=== PATIENT | male | born 1935 | race Caucasian/White ===

== ENCOUNTER 2023-01-21 09:02 | Emergency (ER) | payer MEDICARE, OTHER, SELFPAY ==
[2023-01-21 09:03] VITALS: BP 139/78; PULSE 82; RESP 16; TEMP 36.3; O2SAT 100; BMI 25.0
--- NOTE | 2023-01-21 09:34 | ED.VIS.LOWEX ---
HPI History of Present Illness Chief Complaint: Lower Extremity Injury Informant: patient and spouse/S.O. Narrative Narrative: Brought by EMS worsening nontraumatic right knee pain. History of osteoarthritis bilateral knees followed by Dr. Mosquera. He had a previous left total hip arthroplasty 4 years ago while in [place] this was elective. States however since yesterday pain increased worse with movement. No fevers. No history of diabetes. He took naproxen with no relief. He has been on oxycodone for his hip replacement. Denies history of gout. He had a steroid injection to the right knee 2 months ago that helped with symptoms. PFSH PFSH Home Medications cephalexin 500 mg capsule 500 mg PO Q6 #20 CAPSULES 01/21/23 [Rx Last Taken Unknown] doxycycline monohydrate 100 mg capsule 100 mg PO BID #10 CAPSULES 01/21/23 [Rx Last Taken Unknown] oxycodone-acetaminophen 5 mg-325 mg tablet (Percocet) 1 tab PO Q6H pain 3 days #12 tabs 01/21/23 [Rx Last Taken Unknown] simvastatin 40 mg tablet mg 01/21/23 [History Last Taken 01/20/23] Allergy/AdvReac Type Severity Reaction Status Date / Time No Known Allergies Allergy Verified 01/21/23 09:08 Social History Smoking Status: Current some day smoker tobacco type: pipe ROS ROS ED Constitutional Constitutional ED: Denies chills, fever(s) or sweats Eyes Eyes: Denies change in vision ENT ENT ED: Denies dysphagia or sore throat Cardiovascular Cardiovascular: Denies chest pain, leg edema, palpitations or racing heartbeat Respiratory/Chest Respiratory/Chest: Denies cough, dyspnea or dyspnea on exertion Gastrointestinal Gastrointestinal: Denies abdominal pain, diarrhea, nausea or vomiting Genitourinary Genitourinary ED: Denies dysuria, hematuria or urinary frequency Musculoskeletal Musculoskeletal: Reports arthralgias; Denies back pain, extremity pain or neck pain Integumentary Denies rash or wounds Neurologic Neurologic: Denies headache(s), paresthesias or weakness EXAM Physical Exam Const Vital Signs: 01/21/23 09:03 Temperature 97.4 F L Temperature Source Temporal Pulse Rate 82 Respiratory Rate 16 Blood Pressure 139/78 H Blood Pressure Mean 98 Pulse Ox 100 Oxygen Delivery Method Room Air Positive well nourished and well developed General Appearance ED: well developed and NAD HEENT Reports moist mucous membranes normocephalic and atraumatic Eyes PERRL, EOMs intact bilaterally and conjunctivae normal General Eye ED: Yes normal appearance of both eyes Neck no lymphadenopathy and supple General: Negative for tenderness Chest Wall Chest: Negative for tenderness Resp normal respiratory effort and normal air movement Effort and Inspection: symmetric chest movement; Negative for respiratory distress Cardio regular rate, regular rhythm and no murmurs Peripheral Pulses: pulses 2+ throughout GI normal to inspection, nondistended, normoactive bowel sounds and non-tender Palpation: Negative for guarding or rebound tenderness present Back/Spine no CVA tenderness and no thoracic nor lumbar tenderness Extremity Extremity Narrative: Bilateral knees osteoarthritic changes bilateral knees. Right knee: There is mild redness outer upper aspect of the knee. There is pain with range of motion. There was mild warmth compared to the left. Knee extensor was intact. General Extremety ED: Negative for edema or tenderness General Extremity: Negative for edema Neuro oriented x3 and no sensory deficits noted Sensorium / Orientation: awake and alert Skin no rashes or lesions noted and no wounds MDM MDM MDM Narrative Medical decision making narrative: Interventions / MDM: Differential diagnosis: Arthritis, cellulitis, bursitis Diagnosis considered but do not suspect: Septic joint, however knee aspiration without any fluid My EKG interpretation: N/A Imaging independently reviewed and interpreted by myself: Right knee x-ray 2 views: Mild arthritic changes suprapatellar effusion noted. External documents reviewed: N/A Test considered but not ordered:N/A ED course: Patient had warmth to the knee nontraumatic pain. Discussed with patient potential concerns for septic knee gouty arthritis also in differential. Discussed aspiration of the knee further evaluation. Labs were obtained including uric acid. 0935: Dry aspiration of the joint, lower concerns for infected knee. Analgesia was injected into the knee, no steroids due to having steroid injection 2 months ago by his orthopedist. Labs are pending. 0930: Joint aspiration. Verbal consent from the patient. Risk and benefits. He is not on any anticoagulation medicines. Knee was placed in a flexed position the right side. Initial skin alcohol prep with marking of site. Betadine prep of the skin. Sterile gloves and technique was used. 10 cc syringe 18-gauge needle entrance of the skin medial aspect of the knee, needle 1/2 inch fully flushed into the joint, aspirated there was no fluid return. This was redirected more into the middle aspect of the joint again with no fluid collection. 4 cc of 0.5% bupivacaine was injected for analgesia control. Needle was removed. Minimal bleeding. Bandage placed over the wound. Patient tolerated procedure well. 1020: Laboratory studies returning white count 2, see your 37 uric acid normal. ESR 7. Creatinine 1.43. There is no old for comparison. X-ray of the knee notes a suprapatellar effusion. No joint effusion. Reevaluation patient as needed, redness upper outer knee, pain is right underneath this region with range of motion. The bupivacaine injection did not improve helped this region. There is no direct internal knee pain. Due to the leukocytosis and elevated CRP, paged to discuss with orthopedist for recommendations before antibiotics to be started. I did add lactic acid and blood cultures. 1100: I did speak with his orthopedist Dr. Mosquera, I discussed his history dry aspiration concerning for extra arterial supra patellar effusion. No further intervention required. Agrees with antibiotics which can be started. Reports if admission is required would need the on-call discussion for consult. I evaluated discussed with the patient. He does feel he can walk at this point. Asif wrap was placed in the knee walker use he is able to walk without difficulties. Per spouse he has a cane and a walker at home. He is on stool softeners daily. Therefore he started on Keflex and doxycycline. Avoided Bactrim due to slight renal insufficiency creatinine 1.43. He will follow-up with PCP for recheck. Prescription for oxycodone. Return precaution discussed with patient and spouse. All questions were answered. Re-evaluation: stable Disposition discussed with patient/family/significant other: Patient and significant other Case discussed with consulting clinician: Orthopedist, Dr. Mosquera This note was generated with [employer]ation software. It may contain incorrect words, spelling, and punctuation that were not noted in checking the note before signing. Lab Data Attestation: I reviewed the patient's lab results. Labs: Laboratory Results - last 24 hr 01/21/23 09:30 WBC 14.2 H RBC 3.86 L Hgb 11.9 L Hct 36.6 L MCV 94.8 H MCH 30.8 MCHC 32.5 RDW Std Deviation 51.4 H RDW Coeff of Mauri 15.0 H Plt Count 256 MPV 10.8 Immature Gran % (Auto) 0.800 Neut % (Auto) 87.4 H Lymph % (Auto) 4.7 L [place] % (Auto) 6.5 Eos % (Auto) 0.1 Baso % (Auto) 0.5 Absolute Neuts (auto) 12.5 H Absolute Lymphs (auto) 0.67 L Nucleated RBC % 0 ESR 7 PT 12.7 INR 1.0 APTT 31.5 Sodium 137 Potassium 4.1 Chloride 106 Carbon Dioxide 24.0 Anion Gap 7 BUN 25 H Creatinine 1.43 H Estim Creat Clear Calc 38.29 Est GFR (MDRD) Af Amer 60 Est GFR (MDRD) Non-Af 50 L BUN/Creatinine Ratio 17.5 Glucose 125 H Uric Acid 5.4 Calcium 9.5 C-React Prot Ext Range 37.20 H Radiography Diagnostic Testing: Clinical Impression(s) from Imaging Studies Knee X-Ray 01/21/23 09:35 IMPRESSION: Mild medial joint space narrowing. Prominent suprapatellar effusion. Electronically Signed: Sav Vaz, at 9:47 EDT Reading Location ID and State: [address] [place] [address] Tel , Service support , Discharge Plan Triage Chief Complaint: Lower Extremity Injury ED Provider: Keith Henao Dx/Rx/DC Orders Clinical Impression: Cellulitis of right thigh, Suprapatellar bursitis of right knee, Renal insufficiency Instructions: ED Bursitis, ED Cellulitis Prescriptions: New oxycodone-acetaminophen [Percocet] 5-325 mg tablet 1 tab PO Q6H 3 Days Qty: 12 0RF cephalexin [cephalexin] 500 mg capsule 500 mg PO Q6 Qty: 20 0RF doxycycline monohydrate 100 mg capsule 100 mg PO BID Qty: 10 0RF No Action simvastatin 40 mg tablet Patient Comments: TAKE ONE TABLET BY MOUTH ONCE DAILY IN THE EVENING Primary Care Provider: Сергей Virk Referrals: Сергей Virk MD [Primary Care Provider] - 1-2 Weeks Aaron Mosquera MD [Med Staff - Active Staff] - 1 Week Activity Restrictions/Additional Instructions: Your creatinine 1.43 today. No old for comparison. Your white count of 14. You had no fluid from your knee aspiration for concerning for joint infection. You have suprapatellar fluid. Exam concerns for cellulitis and bursitis of the upper aspect of the knee. Take antibiotic as prescribed. Take pain medicines as prescribed. Continue your stool softener at home. Follow-up with your doctor for recheck labs. Follow-up with Dr. Mosquera due to your knee pain. Disposition Disposition: Home, Self Care
--- NOTE | 2023-01-21 09:35 | RAD_ITS ---
INDICATION: pain EXAMINATION/TECHNIQUE: X-RAY - RIGHT XR Knee 1 or 2 Views 2 VIEWS COMPARISON: FINDINGS: SOFT TISSUES: No soft tissue swelling or gas. No radiopaque foreign body. BONES/JOINTS: No acute fracture or subluxation.. Normal alignment. There is mild medial joint space narrowing... No sclerotic or destructive changes observed. There is a prominent suprapatellar effusion. RAD/Knee 1 or 2 Views IMPRESSION: Mild medial joint space narrowing. Prominent suprapatellar effusion. Electronically Signed: Sav Vaz, at 9:47 EDT ,
[2023-01-21] MEDS: oxyCODONE 5 MG Tablet PO (09:36)
[2023-01-21 09:43] LABS: Erythrocyte Sedimentation Rate 7 mm/hr (0-20)
[2023-01-21 09:45] LABS: Absolute Lymphocyte Count 0.67 X10^3/uL (0.83-4.51); Absolute Neutrophil Count 12.5 X10^3/uL (2.0-7.7); Basophil# 0.07 X10^3/uL; Basophil% 0.5 % (0-1); Eosinophil# 0.01 X10^3/uL; Eosinophils% 0.1 % (0-5); Hematocrit 36.6 % (40-54); Hemoglobin 11.9 g/dL (13.0-16.5); Lymphocyte # 0.67 X10^3/ul (0.83-4.51); Lymphocyte % 4.7 % (19-41); Mean Corp Hgb Conc 32.5 g/dL (32-36); Mean Corpuscular Hgb 30.8 pg (27.0-32.0); Mean Corpuscular Volume 94.8 fL (80-94); Mean Platelet Vol. 10.8 fl (6.2-12.0); Monocyte# 0.92 X10^3/uL; Monocyte% 6.5 % (0-10); NRBC Flagged by Analyzer 0 % (0-5); Neutrophil # 12.45 X10^3/uL (2.7-7.7); Neutrophil % 87.4 % (47-70); Platelet Count 256 K/mm3 (150-450); RBC Distribution Width SD 51.4 fl (35.1-43.9); Red Blood Count 3.86 M/mm3 (4.6-6.2); White Blood Count 14.2 K/mm3 (4.4-11.0)
[2023-01-21 09:55] LABS: Partial Thromboplast Time 31.5 Seconds (24.1-36.2); Prothrombin Time (Protime)PT. 12.7 SECONDS (11.7-14.9)
[2023-01-21 10:03] LABS: Anion Gap 7 (5-15); BUN 25 mg/dL (7-18); BUN/Creat Ratio 17.5 RATIO (10-20); Calcium,Total 9.5 mg/dL (8.5-10.1); Chloride 106 mmol/L (98-107); Creatinine, Serum 1.43 mg/dL (0.70-1.30); EST Glomerular Filtration Rate 50 mL/min (>60); Est Glom Filt Rate - Afr Amer 60 mL/min (>60); Estimated Creatinine Clearance 38.29 ml/min; Glucose 125 mg/dL (74-106); Potassium 4.1 mmol/L (3.5-5.1); Sodium Level 137 mmol/L (136-145); Uric Acid 5.4 mg/dL (3.5-7.2)
--- NOTE | 2023-01-21 10:23 | NURSING ---
CALLED DR REEVES. LEFT MESSAGE ON HIS CELL, PER THE OFFICE
[2023-01-21 11:26] LABS: Lactic Acid 0.9 mmol/L (0.4-1.9)
[2023-01-21] MEDS: Cephalexin 250 MG Capsule 500 MG PO (11:34)
[2023-01-21] MEDS: Doxycycline 100 MG CAPSULE PO (11:34)
== END 2023-01-21 11:43 | disposition home or self-care (01) ==
PROVIDERS: Emergency Provider Emergency Medicine; PCP Family Medicine; Visit Provider Emergency Medicine
DX: M70.51 Other bursitis of knee, right knee (principal); L03.115 Cellulitis of right lower limb; N28.9 Disorder of kidney and ureter, unspecified; F17.200 Nicotine dependence, unspecified, uncomplicated; Z96.643 Presence of artificial hip joint, bilateral; R79.82 Elevated C-reactive protein (CRP); M17.0 Bilateral primary osteoarthritis of knee; Z79.899 Other long term (current) drug therapy
CPT/HCPCS: 20610; 73560; 80048; 83605; 84550; 85025; 85610; 85652; 85730; 86140; 87040; 99285; A4216

== ENCOUNTER → 2023-06-08 | Outpatient (CLI) | payer MEDICARE, OTHER, SELFPAY ==
--- NOTE | 2023-06-08 08:08 | RAD_ITS ---
PROCEDURE: Fluoroscopic guided Hip Injection DATE: June 08, 2023. INDICATION: Male, 87 years old. Chronic hip pain. PHYSICIAN: Harjeet Osborne M.D. MEDICATIONS: 80 mg of Kenalog and 3 cc 1% lidocaine. 2% lidocaine administered subcutaneously for local anesthesia. ACCESS SITE: Right hip. NEEDLE: 22-gauge spinal needle. FLUOROSCOPY TIME (if supplied): (1:06) minutes/seconds. 20.6 mGy. One image was obtained. FINDINGS: The risks, benefits, and alternatives to the procedure were explained to the patient. The specific risks of bleeding, infection, and neurovascular injury were detailed and accepted. Witnessed informed consent was obtained. A 22-gauge spinal needle was positioned under radiographic fluoroscopic localization. Approximately 2 cc of Isovue-300 instilled for localization purposes. Medication was then injected. The patient tolerated the procedure well without any immediate complications. RAD/Inj/Asp Dameon Jt Should/Hip/Knee IMPRESSION: 1. Successful fluoroscopic guided hip injection. Electronically Signed: Harjeet Osborne MD at 9:01 EST ,
[2023-06-08] MEDS: Lidocaine 2% (5ml sdv) 5 ML VIAL.MPF (08:33)
[2023-06-08] MEDS: Triamcinolone Acetonide 40 MG/ML Vial 80 MG OPERA.SITE (08:35)
[2023-06-08] MEDS: Lidocaine 1% (5 ml sdv) 5 ML Vial 3 ML OPERA.SITE (08:35)
--- NOTE | 2023-06-08 10:06 | PRO.PCM_ITS ---
Procedure Report Date of Procedure: 06/08/23 Assessment & Plan Assessment/Plan (1) Right hip pain: PLAN: PROCEDURE: Fluoroscopic Guided right hip injection ORDERING PROVIDER: Dr. Krunal Lopez INDICATION: Male, 87 years old. Right hip pain. PROVIDER: ANNA Fiore PROCEDURE: CONSENT: The risks, benefits, and alternatives to the procedure were explained to the patient. The specific risks of bleeding, infection, and neurovascular in jury were detailed and accepted. Witnessed informed consent was obtained. TECHNIQUE: The right hip access site was prepped and draped in sterile fashion. 2% Lidocaine was administered subcutaneously for local anesthesia. A 22-gauge spinal needle was positioned under radiographic fluoroscopic localization. Approximately 2 cc of Isovue 300 instilled for localization purposes. Medication was then injected. MEDICATIONS: 80 mg of Kenalog and 3 ml of 1% lidocaine. The spinal needle was removed, and a dressing was applied. The patient tolerated the procedure well without any immediate complications. IMPRESSION: Successful fluoroscopic guided right hip injection. Procedures Radiology Radiology Xray Procedures: Inj Asp major Joint - Hip, Knee
== END | disposition home or self-care (01) ==
PROVIDERS: PCP Family Medicine
DX: M16.11 Unilateral primary osteoarthritis, right hip (principal)
CPT/HCPCS: 20610; 77002; Q9967

== ENCOUNTER → 2024-02-10 | Outpatient (CLI) | payer MEDICARE, OTHER, SELFPAY ==
[2024-02-10] MEDS: Lidocaine 2% (5ml sdv) 5 ML VIAL.MPF INFILT (08:20)
[2024-02-10] MEDS: Triamcinolone Acetonide 40 MG/ML Vial 80 MG INTRAARTIC (08:25)
[2024-02-10] MEDS: Lidocaine 1% (5 ml sdv) 5 ML Vial 3 ML INFILT (08:25)
--- NOTE | 2024-02-10 11:30 | PCM.OP.PRO ---
Procedure Report Date of Procedure: 02/10/24 Assessment & Plan Assessment/Plan (1) Right hip pain: PLAN: PROCEDURE: Fluoroscopic Guided right hip injection ORDERING PROVIDER: Eber Rock CNP INDICATION: Male, 88 years old. Right hip pain. FLUOROSCOPY TIME (if supplied): 0 minutes/17 seconds. 2.5 mGy PROVIDER: ANNA Fiore PROCEDURE: CONSENT: The risks, benefits, and alternatives to the procedure were explained to the patient. The specific risks of bleeding, infection, and neurovascular injury were detailed and accepted. Witnessed informed consent was obtained. TECHNIQUE: The right hip access site was prepped and draped in sterile fashion. 2% Lidocaine was administered subcutaneously for local anesthesia. A 22-gauge spinal needle was positioned under radiographic fluoroscopic localization. Approximately 2 cc of Isovue 300 instilled for localization purposes. Medication was then injected. MEDICATIONS: 80 mg of triamcinolone and 3 ml of 1% lidocaine. The spinal needle was removed, and a dressing was applied. The patient tolerated the procedure well without any immediate complications. IMPRESSION: Successful fluoroscopic guided right hip joint injection. Procedures Radiology Radiology Xray Procedures: [id number] Inj Asp major Joint - Hip, Knee Multi Select Codes Radiology Rad Xray Procedures: [id number] Fluoroscopic guidance for needle placement
== END | disposition home or self-care (01) ==
LOC: RAD 07:54
PROVIDERS: PCP Family Medicine
DX: M16.11 Unilateral primary osteoarthritis, right hip (principal)
CPT/HCPCS: 20610; 77002; Q9967

== ENCOUNTER → 2025-03-27 | Outpatient (CLI) | payer MEDICARE, OTHER, SELFPAY ==
[2025-03-27 10:56] LABS: Hematocrit 29.0 % (40-54); Hemoglobin 9.4 g/dL (13.0-16.5); Immature Granulocytes Count 0.040 X10^3/uL (0.0-0.0); Mean Corp Hgb Conc 32.4 g/dL (32-36); Mean Corpuscular Volume 93.9 fL (80-94); Mean Platelet Vol. 11.8 fl (6.2-12.0); NRBC Flagged by Analyzer 0 % (0-5); Platelet Count 267 K/mm3 (150-450); RBC Distribution Width CV 18.2 % (11.6-14.6); RBC Distribution Width SD 59.7 fl (35.1-43.9); Red Blood Count 3.09 M/mm3 (4.6-6.2); White Blood Count 6.3 K/mm3 (4.4-11.0)
== END | disposition home or self-care (01) ==
LOC: LAB 10:25
PROVIDERS: PCP Family Medicine; Referring Provider Nurse Practitioner Acute Care; Visit Provider Nurse Practitioner Acute Care
DX: D64.9 Anemia, unspecified (principal); R19.7 Diarrhea, unspecified
CPT/HCPCS: 36415; 85025

== ENCOUNTER → 2025-03-28 | Outpatient (CLI) | payer MEDICARE, OTHER, SELFPAY ==
[2025-03-30 16:09] LABS: Calprotectin, Stool 18 ug/g (0-120)
== END | disposition home or self-care (01) ==
PROVIDERS: PCP Family Medicine; Referring Provider Nurse Practitioner Acute Care; Visit Provider Nurse Practitioner Acute Care
DX: R19.7 Diarrhea, unspecified (principal)
CPT/HCPCS: 83993